=== PATIENT | male | born 1960 | race Caucasian/White ===

== ENCOUNTER 2016-04-29 16:41 | Inpatient (IN) | payer OTHER ==
--- NOTE | ~2016-04-29 | CO ---
Unit #: [id number] #: [id number] Patient: MIYA GONCALVES [id number] [address] [place], [place] [address] [id number] MR#: [id number] NAME: MIYA GONCALVES. ROOM: 558 Age: 56 Sex: M Admission Date: 04/29/2016 : 1960 Attending Physician: Elías Hoyt M.D. Consultation Date: 05/01/2016 CONSULTATION REPORT REASON FOR CONSULTATION Depression, schizophrenia. HISTORY OF PRESENT ILLNESS Miya Goncalves is a 56-year-old male, seen on 05/01/2016. The patient interviewed, chart reviewed, and obtained information from nursing staff. The patient was admitted with testicular inflammation. The patient was compliant and cooperative during interview. The patient is currently taking medication for schizophrenia. The patient was a poor historian, unable to give detailed information. The patient has a history of being noncompliant with medication, but currently started back on Risperdal. The patient was guarded, paranoid, flat affect. Attending to internal stimuli, but denied any thoughts of harming self or others, cooperative. PAST PSYCHIATRIC HISTORY Remarkable for history of schizophrenia. MEDICAL HISTORY History of diabetes mellitus, hypertension, CHF with ejection fraction of 20%. MEDICATION HISTORY The patient is on Coreg, Lipitor, Keppra, Risperdal, aspirin, Vimpat, Levemir, lisinopril, metformin. ALLERGIES To Thorazine. FAMILY HISTORY AND SOCIAL HISTORY The patient has a poor support from the family. No history of any abuse. No history of any substance abuse. REVIEW OF SYSTEMS Complete review of systems is unremarkable. MENTAL STATUS EXAMINATION General appearance, the patient dressed casually in hospital attire, lying comfortably. Attention span and concentration, fair. Speech, slow with long pauses. Oriented in place and person. Mood and affect are sad, dysphoric, flat. Thought process, circumstantial. Thought content, guarded, paranoid, but denied any thoughts of harming self or others. Recent and remote memory, fair. Language, able to name object and repeat phrases. Fund of knowledge, fair. Insight and judgment are fair to slightly impaired. 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 Major depressive disorder, recurrent, F33.2. Secondary Diagnosis: Deferred. Medical Diagnosis: Please refer to H and P. Stressors: Psychosocial stressors. ASSESSMENT/PLAN 1. Supportive psychotherapy and psychoeducation provided to the patient. 2. Educated about benefits and side effects of medication and course and prognosis of illness. 3. Advised to continue with Risperdal 2 mg at bedtime. If needed, consider further adjustment of medication. We will continue to follow. Please feel free to call if any question. If needed, consider medication such as SSRI with the current combination of medication. Dictated by... Coy Felton/trisha TD: 05/04/2016 02:47 JOB #: [id number] CONSULTATION REPORT X Bhavesh Duarte MD X CONSULTATION REPORT
--- NOTE | ~2016-04-29 | A ---
[facility] Nutrition Therapy DATE: 05/03/16 Patient: MIYA MIX Physician: LORRAINE Address: [address] [place] [address] Room/Bed: [address] [place] [address], Zip: [place] [address] Admit Date: 04/29/16 Date of : [birth year] Height: 5 10 Weight: 264 120 NUTRITIONAL ASSESSMENT: REASON: CONSULT RE: DIET EDUCATION PT IS 56 Y.O. MALE ADMITTED FOR TESTIUCULAR INFLAMMATION, CHF EXAC HT: 5'10", WT: 260# (118 KG), BMI: 37.3 RD PROVIDED WRITTEN AND VERBAL CC DIET EDUCATION. RD LISTED FOODS TO AVOID/LIMIT AND FOODS TO EAT MORE OFTEN. PT REPORTS CONSUMING NOODLES, PASTA AN BREAD DAILY. RD PROVIDED HEALTHIER ALTERNATIVES AND SPOKE ON IMPORTANCE OF PORTION CONTROL. OF NOTE, PT NOTED TO HAVE DIFFICULTY IN COMPREHENDING PART OF THE INFORMATION PROVIDED. PT VERBALIZED UNDERSTANDING OF THE TOPIC/REPORTED NO DIET QUESTIONS AT THIS TIME. RD TO REMAIN AVAILABLE. RECOMMENDATIONS: 1. ENCOURAGE COMPLIANCE OF CURRENT DIET ORDER ABOVE-CC+HH RD WILL F/U PER PROTOCOL Respectfully, TONIE CYR MS, RD, LD Food and Nutritional Services [facility] cc: client file
--- NOTE | ~2016-04-29 | HP ---
Unit #: [id number] #: [id number] Patient: MIYA MIX [id number] [address] [place], [place] [address] [id number] MR#: [id number] NAME: MIYA MIX ROOM: Age: 56 Sex: M Admission Date: 04/29/2016 : 1960 Attending Physician: Richard Richardson M.D. Referring Physician: No Primary Care Physician Primary Care Physician: No Primary Care Physician HISTORY AND PHYSICAL CHIEF COMPLAINT Testicular swelling. HISTORY OF PRESENT ILLNESS The patient is a 56-year-old male with a history of diabetes, hypertension, schizophrenia and CHF, brought to the emergency room complaining of the testicular swelling associated with a burning on urination. The patient stated the patient has been having gradually worsening swelling and shortness of breath. The patient stated the patient is not on any water pills. The patient denies missing any medications at home. The patient has a history of schizophrenia and the history is limited by the patient and the history is obtained by reviewing the records and speaking to the ER physician. The patient was found to have hypokalemia with a potassium of 3 and the CHF exacerbation with a BNP of 409. The patient stated the patient is noncompliant with the meds. Patient also complains of bilateral lower extremity edema; denies any fever or chills, nausea or vomiting, chest pain, palpitations. PAST MEDICAL HISTORY History of diabetes mellitus, schizophrenia, hypertension and the CHF with the EF of 20%. PAST SURGICAL HISTORY History of a bilateral hand surgery. ALLERGIES Thorazine. HOME MEDICATIONS He is on Coreg, Lipitor, Keppra, Risperdal, aspirin, Vimpat, Levemir, lisinopril, metformin. Patient has not been on medications for more than a month. FAMILY HISTORY Negative for seizures. SOCIAL HISTORY The patient lives alone. He stopped smoking about five years ago, rarely drinks alcohol, does not use any illicit drug abuse. REVIEW OF SYMPTOMS Fourteen-point review of symptoms performed and only pertinent positive findings as described above, remaining are negative. Unit #: [id number] #: [id number] Patient: MIYA MIX PHYSICAL EXAMINATION GENERAL APPEARANCE: On examination the patient is lying on a bed not in acute distress. VITAL SIGNS: Temperature 98.4, pulse 87, respiratory rate 19, blood pressure 162/106, sating 94% at room air. HEENT: Head atraumatic, normocephalic. Pupils equal, round and reacting to light and accommodation. Extraocular movements are intact. NECK: Supple. No JVD. LUNGS: Decreased air entry at the bases. Positive for rales. HEART: Regular rate and rhythm. ABDOMEN: Soft, positive bowel sounds. EXTREMITIES: Bilateral edema +1 to +2 associated with the testicular swelling bilaterally, erythematous. NEUROLOGIC: Alert, awake, oriented. No gross focal motor deficit. DIAGNOSTIC STUDIES LABORATORY DATA: Glucose 197, BUN 6, creatinine 0.6, sodium 143, potassium 3, chloride 96, bicarb 37, calcium 27.8, total protein 5.3, AST 23, ALT 21, lipase 260 and BNP is 409, and beta hydroxybutyrate is 1.81, WBC 5.3, hemoglobin 14.8, hematocrit 44.8, platelets 173. UA is not done. IMAGING: The chest x-ray shows interstitial edema consistent with a CHF. ASSESSMENT 1. Testicular swelling. 2. Jupfz-yp-hpazynn systolic heart failure. 3. Uncontrolled diabetes. 4. Hypokalemia. PLAN 1. Plan to admit the patient to the inpatient with the telemetry. 2. Replace the potassium per protocol. 3. Will check the ultrasound of the testicles to rule out torsion. 4. Will have the cardiology consult for the CHF. 5. Maximize medical management and continue with the diuretic, Lasix 40 mg daily. 6. Check the echo. 7. Sliding scale. 8. Repeat the labs again in the morning. 9. Further recommendations will follow. Dictated by Coy León TD: 04/29/2016 19:20 JOB #: [id number] Unit #: [id number] #: [id number] Patient: MIYA MIX HISTORY AND PHYSICAL X X HISTORY AND PHYSICAL
--- NOTE | ~2016-04-29 | CR72 ---
[facility] A Service [facility] RADIOLOGY TEXT RESULTS PATIENT: MIYA MIX LOCATION: [place] [address] : [birth year] UNIT #: [id number] AGE: [address]: Elías Hoyt MD SEX: M ORDER DR: [id number] [place] [address] [place], [place] [address] [id number] I MR#: [id number] Acc #: [id number] NAME: MIYA MIX. : 1960 SEX: M STUDY DATE/TIME: 04/29/2016 16:30 UNIT: CEDOF ROOM: 15817 STUDY DESCRIPTION: CR Chest Single View Portable Attending Physician: García Salamanca M.D. Referring Physician: No Primary Care Physician Ordering Physician: Richard Richardson M.D. Primary Care Physician: No Primary Care Physician MEDICAL IMAGING REPORT This report is preliminary unless electronic signature is present EXAM Portable chest. DATE OF EXAM 04/29/2016 INDICATIONS 56-year male with history of congestive heart failure, shortness of breath for 2 weeks. COMPARISON Compared with 07/03/2014. FINDINGS There are increased interstitial opacities suggesting edema. Heart size stable. IMPRESSION Increased interstitial opacities suggesting edema given the patient's history of congestive heart failure. Dictated by... Lewis Andrea M.D. THIS IS AN ELECTRONICALLY VERIFIED REPORT Lewis Andrea M.D. at 04/30/2016 4:20 PM ARS/jalesha TD: 04/29/2016 20:43 JOB #: [id number] MEDICAL IMAGING REPORT [facility] A [facility] RADIOLOGY TEXT RESULTS PATIENT: MIYA MIX LOCATION: [place] [address] : [birth year] UNIT #: [id number] AGE: [address]: Elías Hoyt MD SEX: M ORDER DR: COPY
--- NOTE | ~2016-04-29 | EKG ---
PATIENT: MIYA MIX UNIT #: [id number] Ventricular Rate: 94 BPM Atrial Rate: 94 BPM P-R Interval: 138 ms QRS Duration: 92 ms Q-T Interval: 382 ms QTC Calculation(Bezet): 477 ms P [place]: 40 degrees Calculated R [place]: 16 degrees Calculated T [place]: 101 degrees Diagnosis Line: Normal sinus rhythm Diagnosis Line: Abnormal QRS-T angle, consider primary T wave Diagnosis Line: abnormality Diagnosis Line: Prolonged QT Diagnosis Line: Abnormal ECG Diagnosis Line: When compared with ECG of 01-MAY-2016 05:41, Diagnosis Line: Nonspecific T wave abnormality no longer evident Diagnosis Line: in Inferior leads Diagnosis Line: T wave inversion less evident in Lateral leads Diagnosis Line: Confirmed by SHAKA MICHELLE MD ([id number]) on Diagnosis Line: 05/04/2016 12:08:29 PM INTERPRETING MD: MARGIE
--- NOTE | ~2016-04-29 | EKG ---
PATIENT: MIYA MIX UNIT #: [id number] Ventricular Rate: 81 BPM Atrial Rate: 81 BPM P-R Interval: 134 ms QRS Duration: 88 ms Q-T Interval: 430 ms QTC Calculation(Bezet): 499 ms P [place]: 53 degrees Calculated R [place]: 66 degrees Calculated T [place]: 155 degrees Diagnosis Line: Normal sinus rhythm Diagnosis Line: Nonspecific ST and T wave abnormality Diagnosis Line: Abnormal ECG Diagnosis Line: When compared with ECG of 04-JUL-2014 03:11, Diagnosis Line: Nonspecific T wave abnormality no longer evident Diagnosis Line: in Inferior leads Diagnosis Line: Nonspecific T wave abnormality now evident in Diagnosis Line: Anterior leads Diagnosis Line: Confirmed by PATRICK MARTINEZ MD ([id number]) on 04/30/2016 Diagnosis Line: 5:14:56 PM INTERPRETING MD: MICHELLE GIBSON
--- NOTE | ~2016-04-29 | CO ---
Unit #: [id number] #: [id number] Patient: MIYA MIX [id number] [address] [place], [place] [address] [id number] I MR#: [id number] NAME: MIYA MIX. ROOM: 558 Age: 56 Sex: M Admission Date: 04/29/2016 : 1960 Attending Physician: Elías Hoyt M.D. Primary Care Physician: Primary Care Physician No CONSULTATION REPORT REASON FOR CONSULTATION CHF. HISTORY OF PRESENT ILLNESS This is a pleasant 56-year-old male with past medical history of hypertension, diabetes mellitus, schizophrenia, hyperlipidemia, systolic congestive heart failure with last known ejection fraction of 20%. The patient presents to the emergency room with complaints of increased scrotal swelling, dizziness, and burning with urination. Chest x-ray performed in the emergency room showed increasing interstitial opacities, which were consistent with edema. BNP was 409. It is notable the patient was recently found to have systolic CHF with an LVEF of approximately 20% back in 07/2014. Echo at that time also showed mild mitral regurgitation, tricuspid regurgitation, and pulmonic regurgitation with pulmonary artery dilation, apical akinesis, and left ventricle with moderate dilation. The patient denies any complaints of chest pain. However, he does report shortness of breath with minimal exertion as well as significant issues with dizziness. The patient also states he has episodes of passing out that occurs with his dizzy spells. Apparently, there has been some issues with compliance with him. Apparently, he, for the last month, has been not taking his medications as directed. He denies any increase in cough, fever, or chills. There is no reported PND or orthopnea. PAST MEDICAL HISTORY 1. Diabetes mellitus type 2. 2. Hyperlipidemia. 3. Schizophrenia. 4. Hypertension. 5. Systolic congestive heart failure. 6. Reformed nicotine, alcohol, and polysubstance abuse. 7. Noncompliance with his medications. 8. The echo report on 07/04/2014 as follows. LVEF is 20%, apical akinesis, left ventricle moderately dilated, left atrium is mildly dilated, mild MR., mild TR, mild KS, mild pulmonary artery dilation, no effusion. RVSP is normal. PAST SURGICAL HISTORY Bilateral hand surgery. Unit #: [id number] #: [id number] Patient: MIYA MIX FAMILY HISTORY None that he is aware of. SOCIAL HISTORY The patient lives at home alone. He states he is on disability. He is a reformed tobacco user, quit several years ago. Prior to that, he was about 15 year one pack-a-day smoker. Denies any illicit drugs or alcohol. REVIEW OF SYSTEMS Positive for testicular swelling, lower extremity swelling, dizziness, shortness of breath, fatigue, otherwise negative. PHYSICAL EXAMINATION GENERAL: This is a pleasant 56-year-old, male, who is in no acute distress. He is resting in bed. VITAL SIGNS: Temperature is 98.0, respiratory rate 21, pulse is 96, blood pressure 166/103 to 101/59, oxygen saturation is 95% on room air. HEENT: Head is atraumatic, normocephalic. Pupils are equal and round. Extraocular movements are intact. Mucous membranes are moist. NECK: Supple. Positive for JVD. No carotid bruits. LUNGS: Have scattered rhonchi. Some rales in the bases. HEART: S1, S2. Regular rate and rhythm. No murmurs, gallops, or rubs. ABDOMEN: Large, obese. Abdomen is soft, nontender, nondistended. Bowel sounds are present. EXTREMITIES: Bilateral edema is noted, 2+. Pulses are weak. He also has significant testicular swelling bilaterally. Also the patient is noted to have some wounds on his lower extremities. NEUROLOGIC: He is alert, awake, and oriented. Moves all extremities equally. Follows commands with ease. DIAGNOSTIC STUDIES LABORATORY RESULTS: Sodium 144, potassium 2.8, chloride 95, CO2 of 27, BUN 6, creatinine 0.8, glucose 250, magnesium 1.5. BNP 409. Hemoglobin 13.9, hematocrit 42.8, WBCs 5.8, platelets 188. IMAGING STUDIES: Chest x-ray shows interstitial edema consistent with congestive heart failure. CARDIOVASCULAR STUDIES: EKG shows normal sinus rhythm, 81 beats per minute, nonspecific ST-T wave abnormality, no acute ischemic change, QTc interval 499 milliseconds. IMPRESSION 1. Acute on chronic systolic heart failure. Last ejection fraction of 20% per echo in 07/2014. 2. Significant testicular swelling. 3. Dizziness with syncopal episodes. 4. Poorly controlled diabetes mellitus. 5. Hypokalemia. 6. Hypertension. 7. Hyperlipidemia. 8. Schizophrenia. PLAN The patient has been admitted for acute on chronic congestive heart failure. He has an ejection fraction of 20%. He is also reporting complaints of dizziness with syncopal episodes. We will check orthostatics and have them placed on the chart. He also needs diuretics. Unit #: [id number] #: [id number] Patient: MIYA MIX We will start him on furosemide 40 mg IV b.i.d. We will also trend cardiac enzymes q.6 hours x2. Call if abnormal. The patient also will have electrolyte replacement. He will be started on potassium 40 mEq daily, first dose given stat as well as daily magnesium sulfate. We will add TSH and lipid profile to his labs. At this time, he is on carvedilol. This will be discontinued and the patient will be started on dobutamine drip at 2.5 mcg/kg/minute. This is to start now. We will also ask for social worker clinical to see the patient for assistance with medication and his living condition. As it is obvious, he needs help at home. We will also ask wound care nurse to see secondary to the wounds on his lower extremities. Most likely we will plan cardiac cath on either Tuesday or Tuesday if he has not had ischemic workup in the past. He would also benefit from psych consult. This has been explained to the patient. He is willing and agreeable. Further recommendations pending outcome of the cardiac catheterization. I will also have them check cost on Entresto as he would qualify secondary to his systolic CHF. Dictated by... Oanh Guillaume A.P.R.N. LMW/modl TD: 05/01/2016 01:40 JOB #: [id number] CONSULTATION REPORT X Oanh Guillaume APRN X CONSULTATION REPORT
--- NOTE | ~2016-04-29 | EKG ---
PATIENT: MIYA MIX UNIT #: [id number] Ventricular Rate: 85 BPM Atrial Rate: 85 BPM P-R Interval: 136 ms QRS Duration: 84 ms Q-T Interval: 406 ms QTC Calculation(Bezet): 483 ms P [place]: 57 degrees Calculated R [place]: 57 degrees Calculated T [place]: 138 degrees Diagnosis Line: Normal sinus rhythm Diagnosis Line: Nonspecific T wave abnormality Diagnosis Line: Prolonged QT Diagnosis Line: Abnormal ECG Diagnosis Line: When compared with ECG of 29-APR-2016 16:25, Diagnosis Line: Nonspecific T wave abnormality now evident in Diagnosis Line: Inferior leads Diagnosis Line: Confirmed by SHAKA MICHELLE MD ([id number]) on Diagnosis Line: 05/02/2016 10:37:59 PM INTERPRETING MD: MARGIE
--- NOTE | ~2016-04-29 | US113 ---
[facility] A Service of [facility] RADIOLOGY TEXT RESULTS PATIENT: MIYA MIX LOCATION: [facility] : [birth year] UNIT #: [id number] AGE: [address]: Elías Hoyt MD SEX: M ORDER DR: [id number] [place] [id number] [facility]. [place], [place] [address] [id number] MR#: [id number] #: [id number] NAME: MIYA MIX. : 1960 SEX: M STUDY DATE/TIME: 04/30/2016 10:00 UNIT: [facility] ROOM: [facility] STUDY DESCRIPTION: US Scrotal Duplex Complete Attending Physician: Elías Hoyt M.D. Referring Physician: No Ref Dr Unknown Ordering Physician: Tony Not Listed Primary Care Physician: No Primary Care Physician MEDICAL IMAGING REPORT This report is preliminary unless electronic signature is present EXAM Scrotal ultrasound examination including testicular Doppler vascular evaluation, 04/30/2016. HISTORY 56-year-old male with 10-day history of scrotal pain and swelling. TECHNIQUE Scrotal ultrasound examination using high-resolution odell-scale, spectral Doppler, and color flow Doppler ultrasound imaging. FINDINGS Both testes are normal in size and ultrasound appearance. No visible testicular mass or additional focal lesion. No intrascrotal or extratesticular mass. Small bilateral hydroceles, greater on the right. Doppler vascular evaluation is within normal limits. No evidence of testicular torsion. No evidence of acute epididymitis or orchitis. The skin of the scrotum appears diffusely thickened, which may represent scrotal edema. Exclude scrotal cellulitis. No abscess or other fluid collection. IMPRESSION 1. Both testes are normal in size and ultrasound appearance. 2. Vascular evaluation is within normal limits with no evidence of torsion or acute epididymitis or orchitis. 3. Small bilateral simple hydroceles, greater on the right. 4. Diffuse scrotal skin thickening. This may be secondary to scrotal edema, but cellulitis should be excluded. No evidence of soft tissue abscess. [facility] A Service of [facility] RADIOLOGY TEXT RESULTS PATIENT: MIYA MIX LOCATION: [facility] 558-01 : [birth year] UNIT #: [id number] AGE: [address]: Elías Hoyt MD SEX: M ORDER DR: Dictated by... Alvaro Toledo M.D. THIS IS AN ELECTRONICALLY VERIFIED REPORT Alvaro Toledo M.D. at 04/30/2016 4:53 PM RAZA/zabrina TD: 04/30/2016 15:10 JOB #: [id number] MEDICAL IMAGING REPORT COPY
--- NOTE | ~2016-04-29 | DS ---
Unit #: [id number] #: [id number] Patient: MIYA MIX [id number] [address] [place], [place] [address] [id number] I MR#: [id number] NAME: MIYA MIX. ROOM: 558 Age: 56 Sex: M Admission Date: 04/29/2016 : 1960 Discharge Date: 05/04/2016 Attending Physician: Elías Hoyt M.D. Referring Physician: No Primary Care Physician Primary Care Physician: No Primary Care Physician DISCHARGE SUMMARY CONSULTANTS 1. Dr. Wyatt. 2. Dr. Duarte. PROCEDURE DONE Cardiac catheterization. RECOMMENDATIONS He has triple vessel disease and needs CABG. ADMITTING DIAGNOSIS Testicular swelling. FURTHER DIAGNOSES 1. Poorly controlled diabetes. 2. Acute on chronic systolic heart failure with an EF of 30%. 3. Hypokalemia. 4. Hypertension. 5. Hyperlipidemia. 6. Schizophrenia. HISTORY OF PRESENTING ILLNESS The patient is a 56-year-old man with a past medical history of hypertension, diabetes, schizophrenia, hyperlipidemia, congestive heart failure, who presented to the hospital with a chief complaint of shortness of breath and testicular swelling. In the hospital course, he was noted to have an acute on chronic systolic heart failure. He was started on diuretics. His medications were titrated for heart failure. Unfortunately, he was noncompliant. So, Cardiology was helping us titrate his medications. His diabetes was poorly controlled. He was started on insulin and we are monitoring his sugars. He had a cardiac cath done and, Dr. Wyatt's recommendation, patient to undergo CABG. The patient is agreeable to be transferred to [facility] for further care. Dr. Davila will be the acting physician and will arrange for the transfer to [facility]. On the day of the discharge, his physical examination: GENERAL APPEARANCE: The patient is alert, oriented x3, lying in the bed in no acute distress. VITAL SIGNS: Temperature 98.2. Pulse 85. Respiratory rate 18. Blood pressure 112/82. HEENT: Normocephalic, atraumatic. No icterus. PERRLA. Extraoculars intact. NECK: Supple. No JVD. Unit #: [id number] #: [id number] Patient: MIYA MIX HEART: S1, S2. Regular rate and rhythm. CHEST: Bibasilar crackles. ABDOMEN: Obese, soft, nontender. EXTREMITIES: Edema present. DISCHARGE MEDICATIONS 1. Tylenol p.r.n. 2. Magnesium oxide 400 mg p.o. twice a day. 3. Lovenox 40 mg subcu daily. 4. Vimpat 100 mg p.o. twice a day. 5. Keppra 1,000 mg twice a day. 6. Lipitor 80 mg daily. 7. Risperdal 2 mg at bedtime. 8. Lasix 40 mg twice a day. 9. Urea 10% topical cream to be applied on the toes to knees twice a day. 10. Hydralazine 10 mg IV q.6 p.r.n. for systolic blood pressures more than 180. 11. Zestril 10 mg. 12. Insulin sliding scale. 13. Levemir 20 units subcu daily. 14. Aspirin 81 mg daily. 15. Potassium replacement protocol. 16. Nitroglycerin 0.4 mg sublingual p.r.n. for chest pain. He will be discharged to Cardiology Service at [facility] for further evaluation. Total time spent in the care-35 minutes. Dictated by... Elías Hoyt M.D. Venancio TD: 05/04/2016 14:07 JOB #: [id number] DISCHARGE SUMMARY X X DISCHARGE SUMMARY
[~2016-04-29 16:41] MED LIST: ACETAMINOPHEN PO; ASPIRIN ENTERI325 M1 PO; BACITRACIN15 GM TP; CLEOCIN PO; COREG3.125 MG PO; GLUCOPHAGE500 M1 PO; KEFLEX500 MG PO; KEPPRA1000 MG PO; LEVAQUIN PO; LEVAQUIN250 MG PO; LEVEMIR SUBQ; LEVEMIR100 U/ML SQ; LIPITOR80 MG PO; LISINOPRIL20 MG PO; PHENERGAN25 MG PO
[2016-04-29 16:42] LABS: BASOPHIL% 0.8 % (0-2.5); EOSINOPHIL# 0.1 X10e3 (0-0.7); EOSINOPHIL% 1.5 % (0.0-7.0); HEMATOCRIT 44.8 % (38.0-50.0); HEMOGLOBIN 14.8 gm/dL (13.0-16.0); LYMPHOCYTE# 1.4 X10e3 (1.0-3.5); LYMPHOCYTE% 27.1 % (17.0-45.0); MEAN CELL VOLUME 82.6 FL (83-96); MEAN CORPUSCULAR HEMOGLOBIN 27.3 PG (28-34); MEAN PLATELET VOLUME 9.4 FL (6.5-11.5); MONOCYTE# 0.7 X10e3 (0-1.0); MONOCYTE% 12.6 % (3.0-12.0); NEUTROPHIL# 3.1 X10e3 (1.5-7.1); PLATELET COUNT 173 X10e3 (140-420); RED BLOOD COUNT 5.42 X10e (3.90-5.60); RED CELL DISTRIBUTION WIDTH 14.7 % (11.0-15.5); WHITE BLOOD COUNT 5.3 X10e3 (4.0-10.5)
[2016-04-29 16:50] LABS: DIFF IND NO
[2016-04-29 16:54] LABS: POC - CKMB 2.3 ng/mL (0.0-7.9); POC - TROPONIN <0.05 ng/mL (<=0.05)
[2016-04-29 17:08] LABS: ALBUMIN SERUM 2.3 g/dL (3.5-5.0); ALKALINE PHOSPHATASE 76 U/L (32-92); ALT (SGPT) 21 U/L (10-40); AST (SGOT) 23 U/L (10-42); BETA HYDROXYBUTYRATE 1.81 MMOL/L (0.02-0.27); BILIRUBIN, DIRECT 0.3 mg/dL (0.0-0.2); BILIRUBIN,INDIRECT 0.8 mg/dL (0.0-0.9); BILIRUBIN,TOTAL 1.1 mg/dL (0.2-2.0); BLOOD UREA NITROGEN 6 mg/dL (9-23); CALCIUM SERUM 7.8 mg/dL (8.4-10.2); CARBON DIOXIDE 37 mmol/L (22-31); CHLORIDE 96 mmol/L (100-111); CREATININE SERUM 0.6 mg/dL (0.6-1.4); GLOM FILT RATE Estimated ABOVE60 mL/min (>60); GLUCOSE FASTING 197 mg/dL (70-110); PROTEIN TOTAL SERUM 5.3 g/dL (6.0-8.3); SODIUM 143 mmol/L (135-145)
[2016-04-29 18:26] LABS: URINE SOURCE CLEAN CATCH
[2016-04-29 18:36] LABS: URINE APPEARANCE CLEAR; URINE BILIRUBIN NEG (NEG); URINE BLOOD 2+ (NEG); URINE COLOR YELLOW; URINE GLUCOSE 100 MG/DL (NEG); URINE KETONE TRACE (NEG); URINE LEUKOCYTE ESTERASE NEG (NEG); URINE NITRATE NEG (NEG); URINE PH 6.5 (5-8); URINE PROTEIN 3+ (NEG); URINE SPECIFIC GRAVITY 1.009 (1.003-1.035); URINE UROBILINOGEN 0.2 MG/DL (NEG)
[2016-04-29 18:40] LABS: U HYALINE CASTS AUWI 0-2 /[LPF]; URINE BACTERIA AUWI NEG (NEGATIVE); URINE SQUAMOUS EPITHELIAL CELL NONE SEEN /[HPF]; UWBCS1 AUWI 0-2 (0-5)
[2016-04-29 18:42] LABS: CULTURE INDICATED? NO
[2016-04-29] MEDS ORDERED: BAYER ASPIRIN325 M1 PO (21:06)
[2016-04-29] MEDS ORDERED: COREG3.125 M1 PO (21:06)
[2016-04-29] MEDS ORDERED: KEPPRA1000 MG PO (21:06)
[2016-04-29] MEDS ORDERED: LIPITOR80 MG PO (21:06)
[2016-04-29] MEDS ORDERED: VIMPAT100 MG PO (21:06)
[2016-04-29] MEDS ORDERED: RISPERDAL2 MG PO (21:06)
[2016-04-29] MEDS ORDERED: PRINIVIL20 M1 PO (21:06)
[2016-04-29 23:24] LABS: URINE APPEARANCE CLEAR; URINE BILIRUBIN NEG (NEG); URINE BLOOD 1+ (NEG); URINE COLOR YELLOW; URINE GLUCOSE NEG (NEG); URINE KETONE NEG (NEG); URINE LEUKOCYTE ESTERASE NEG (NEG); URINE NITRATE NEG (NEG); URINE PH 6.5 (5-8); URINE PROTEIN 2+ (NEG); URINE SPECIFIC GRAVITY 1.006 (1.003-1.035); URINE UROBILINOGEN 0.2 MG/DL (NEG)
[2016-04-29 23:26] LABS: U HYALINE CASTS AUWI 0-2 /[LPF]; URINE BACTERIA AUWI NEG (NEGATIVE); URINE SQUAMOUS EPITHELIAL CELL NONE SEEN /[HPF]; UWBCS1 AUWI 0-2 (0-5)
[2016-04-29 23:33] LABS: MAGNESIUM 1.3 mg/dL (1.6-3.0)
[2016-04-29 23:34] LABS: POTASSIUM 2.9 mmol/L (3.5-5.1)
[2016-04-30 05:08] LABS: BASOPHIL% 0.7 % (0-2.5); EOSINOPHIL# 0.1 X10e3 (0-0.7); EOSINOPHIL% 1.7 % (0.0-7.0); HEMATOCRIT 42.8 % (38.0-50.0); HEMOGLOBIN 13.9 gm/dL (13.0-16.0); LYMPHOCYTE# 1.7 X10e3 (1.0-3.5); LYMPHOCYTE% 28.8 % (17.0-45.0); MEAN CELL VOLUME 82.5 FL (83-96); MEAN CORPUSCULAR HEMOGLOBIN 26.9 PG (28-34); MEAN CORPUSCULAR HGB CONC 32.6 g/dL (30-36); MEAN PLATELET VOLUME 9.4 FL (6.5-11.5); MONOCYTE# 0.7 X10e3 (0-1.0); MONOCYTE% 12.6 % (3.0-12.0); NEUTROPHIL# 3.2 X10e3 (1.5-7.1); NEUTROPHIL% 56.2 % (40-75); PLATELET COUNT 188 X10e3 (140-420); RED BLOOD COUNT 5.19 X10e (3.90-5.60); RED CELL DISTRIBUTION WIDTH 14.7 % (11.0-15.5); WHITE BLOOD COUNT 5.8 X10e3 (4.0-10.5)
[2016-04-30 05:16] LABS: DIFF IND NO
[2016-04-30 06:58] LABS: BLOOD UREA NITROGEN 6 mg/dL (9-23); CALCIUM SERUM 7.8 mg/dL (8.4-10.2); CARBON DIOXIDE 37 mmol/L (22-31); CHLORIDE 95 mmol/L (100-111); CREATININE SERUM 0.8 mg/dL (0.6-1.4); GLOM FILT RATE Estimated ABOVE60 mL/min (>60); GLUCOSE FASTING 250 mg/dL (70-110); MAGNESIUM 1.5 mg/dL (1.6-3.0); SODIUM 144 mmol/L (135-145)
[2016-04-30 07:01] LABS: POTASSIUM 2.8 mmol/L (3.5-5.1)
[2016-04-30 12:57] LABS: CHOLESTEROL 207 mg/dL (0-200); CK TOTAL 56 IU/L (36-174); HDL CHOLESTEROL 22 mg/dL (29-75); LDL/HDL RATIO 6 RATIO (0-4); TRIGLYCERIDES 260 mg/dL (10-160)
[2016-04-30 12:58] LABS: LDL CHOLESTEROL 133 mg/dL ([, -130])
[2016-04-30 15:44] LABS: CK TOTAL 52 IU/L (36-174)
[2016-04-30 22:43] LABS: HEMOGLOBIN 14.6 gm/dL (13.0-16.0); MEAN CELL VOLUME 84.4 FL (83-96); MEAN CORPUSCULAR HEMOGLOBIN 27.3 PG (28-34); MEAN CORPUSCULAR HGB CONC 32.4 g/dL (30-36); MEAN PLATELET VOLUME 9.2 FL (6.5-11.5); RED BLOOD COUNT 5.33 X10e (3.90-5.60); RED CELL DISTRIBUTION WIDTH 15.3 % (11.0-15.5); WHITE BLOOD COUNT 6.4 X10e3 (4.0-10.5)
[2016-05-01 06:21] LABS: HEMATOCRIT 42.6 % (38.0-50.0); HEMOGLOBIN 13.9 gm/dL (13.0-16.0); MEAN CELL VOLUME 82.9 FL (83-96); MEAN CORPUSCULAR HEMOGLOBIN 27.1 PG (28-34); MEAN CORPUSCULAR HGB CONC 32.7 g/dL (30-36); MEAN PLATELET VOLUME 9.5 FL (6.5-11.5); RED BLOOD COUNT 5.14 X10e (3.90-5.60); RED CELL DISTRIBUTION WIDTH 14.9 % (11.0-15.5); WHITE BLOOD COUNT 6.1 X10e3 (4.0-10.5)
[2016-05-01 07:09] LABS: BLOOD UREA NITROGEN 9 mg/dL (9-23); CALCIUM SERUM 7.6 mg/dL (8.4-10.2); CARBON DIOXIDE 38 mmol/L (22-31); CHLORIDE 96 mmol/L (100-111); CREATININE SERUM 0.9 mg/dL (0.6-1.4); GLOM FILT RATE Estimated ABOVE60 mL/min (>60); GLUCOSE FASTING 196 mg/dL (70-110); SODIUM 141 mmol/L (135-145)
[2016-05-01 07:14] LABS: POTASSIUM 3.2 mmol/L (3.5-5.1)
[2016-05-02 06:04] LABS: HEMATOCRIT 42.7 % (38.0-50.0); HEMOGLOBIN 13.9 gm/dL (13.0-16.0); MEAN CELL VOLUME 84.3 FL (83-96); MEAN CORPUSCULAR HEMOGLOBIN 27.5 PG (28-34); MEAN CORPUSCULAR HGB CONC 32.6 g/dL (30-36); MEAN PLATELET VOLUME 9.2 FL (6.5-11.5); RED BLOOD COUNT 5.06 X10e (3.90-5.60); WHITE BLOOD COUNT 6.6 X10e3 (4.0-10.5)
[2016-05-02 06:50] LABS: ALBUMIN SERUM 2.1 g/dL (3.5-5.0); ALKALINE PHOSPHATASE 72 U/L (32-92); ALT (SGPT) 14 U/L (10-40); AST (SGOT) 14 U/L (10-42); BILIRUBIN,TOTAL 0.5 mg/dL (0.2-2.0); BLOOD UREA NITROGEN 8 mg/dL (9-23); BUN/CREATININE RATIO 11.42; CALCIUM SERUM 7.7 mg/dL (8.4-10.2); CARBON DIOXIDE 41 mmol/L (22-31); CHLORIDE 98 mmol/L (100-111); CREATININE SERUM 0.7 mg/dL (0.6-1.4); GLOM FILT RATE Estimated ABOVE60 mL/min (>60); GLUCOSE FASTING 86 mg/dL (70-110); MAGNESIUM 1.8 mg/dL (1.6-3.0); POTASSIUM 3.3 mmol/L (3.5-5.1); PROTEIN TOTAL SERUM 5.2 g/dL (6.0-8.3); SODIUM 141 mmol/L (135-145)
[2016-05-03 08:31] LABS: BLOOD UREA NITROGEN 17 mg/dL (9-23); BUN/CREATININE RATIO 24.28; CALCIUM SERUM 8.2 mg/dL (8.4-10.2); CARBON DIOXIDE 36 mmol/L (22-31); CHLORIDE 95 mmol/L (100-111); CREATININE SERUM 0.7 mg/dL (0.6-1.4); GLOM FILT RATE Estimated ABOVE60 mL/min (>60); GLUCOSE FASTING 249 mg/dL (70-110); MAGNESIUM 1.8 mg/dL (1.6-3.0); POTASSIUM 4.7 mmol/L (3.5-5.1); SODIUM 141 mmol/L (135-145)
[2016-05-04 07:18] LABS: BASOPHIL# 0.1 X10e3 (0-0.3); BASOPHIL% 1.2 % (0-2.5); EOSINOPHIL# 0.3 X10e3 (0-0.7); EOSINOPHIL% 3.4 % (0.0-7.0); HEMATOCRIT 47.1 % (38.0-50.0); LYMPHOCYTE% 25.8 % (17.0-45.0); MEAN CELL VOLUME 84.3 FL (83-96); MEAN CORPUSCULAR HEMOGLOBIN 26.8 PG (28-34); MEAN CORPUSCULAR HGB CONC 31.8 g/dL (30-36); MEAN PLATELET VOLUME 9.8 FL (6.5-11.5); MONOCYTE# 0.8 X10e3 (0-1.0); MONOCYTE% 10.9 % (3.0-12.0); NEUTROPHIL# 4.5 X10e3 (1.5-7.1); NEUTROPHIL% 58.7 % (40-75); PLATELET COUNT 282 X10e3 (140-420); RED BLOOD COUNT 5.59 X10e (3.90-5.60); RED CELL DISTRIBUTION WIDTH 14.7 % (11.0-15.5); WHITE BLOOD COUNT 7.6 X10e3 (4.0-10.5)
[2016-05-04 07:19] LABS: DIFF IND NO
[2016-05-04 07:34] LABS: PARTIAL THROMBOPLASTIN TIME 26.4 SECONDS (23.5-31.3); PROTHROMBIN TIME (PATIENT) 10.9 SECONDS (9.6-11.5)
[2016-05-04 07:50] LABS: BLOOD UREA NITROGEN 21 mg/dL (9-23); CALCIUM SERUM 8.4 mg/dL (8.4-10.2); CARBON DIOXIDE 34 mmol/L (22-31); CHLORIDE 93 mmol/L (100-111); GLOM FILT RATE Estimated ABOVE60 mL/min (>60); GLUCOSE FASTING 262 mg/dL (70-110); SODIUM 132 mmol/L (135-145)
[2016-05-17] MEDS ORDERED: ASPIRIN81 M2 PO (00:19)
[2016-05-17] MEDS ORDERED: ALDACTONE25 MG PO (00:19)
[2016-05-17] MEDS ORDERED: BUMEX1 MG PO (00:20)
[2016-05-17] MEDS ORDERED: COGENTIN1 M1 PO (00:20)
[2016-05-17] MEDS ORDERED: HALDOL PO (00:21)
[2016-05-17] MEDS ORDERED: COREG12.5 M1 PO (00:21)
[2016-05-17] MEDS ORDERED: LEVEMIR100 UNITS/ SUBQ (00:24)
[2016-05-17] MEDS ORDERED: NOVOLOG100 U/M2 SUBQ (00:25)
[2016-05-17] MEDS ORDERED: PEPCID PO (00:25)
[2016-05-17] MEDS ORDERED: K-DUR20 ME2 PO (00:27)
== END 2016-05-04 20:15 | DRG 287 ==
LOC: CED 16:41 → CEDOF 18:34 → C5B 21:33
PROVIDERS: Emergency Medicine; Internal Medicine; Internal Medicine Cardiovascular Disease
PROC: 4A023N7 Measurement of Cardiac Sampling and Pressure, Left Heart, Percutaneous Approach (ICD-10-PCS; principal; 2016-05-04)
PROC: B211YZZ Fluoroscopy of Multiple Coronary Arteries using Other Contrast (ICD-10-PCS; 2016-05-04)
PROC: B215YZZ Fluoroscopy of Left Heart using Other Contrast (ICD-10-PCS; 2016-05-04)
DX: I11.0 Hypertensive heart disease with heart failure (principal); F33.2 Major depressive disorder, recurrent severe without psychotic features; F20.0 Paranoid schizophrenia; E11.65 Type 2 diabetes mellitus with hyperglycemia; I25.10 Atherosclerotic heart disease of native coronary artery without angina pectoris; I50.23 Acute on chronic systolic (congestive) heart failure; Z79.84 Long term (current) use of oral hypoglycemic drugs; E87.6 Hypokalemia; E78.5 Hyperlipidemia, unspecified; N50.89 Other specified disorders of the male genital organs; I08.8 Other rheumatic multiple valve diseases; Z91.14 Patient's other noncompliance with medication regimen; R42 Dizziness and giddiness; I25.5 Ischemic cardiomyopathy
CPT/HCPCS: 36415; 71010; 80048; 80053; 80061; 80076; 81003; 82010; 82550; 82553; 82947; 83036; 83735; 83880; 84132; 84443; 84484; 85025; 85027; 85610; 85730; 87086; 93005; 93306; 93975; 94760; 96374; 97161; 97165; 99285; C1769; C1887; C1894; J0360; J1250; J1644; J1650; J1815; J1940; J2250; J3010; J3475